=== PATIENT | female | born 1950 | race Caucasian/White ===

== ENCOUNTER 2018-03-08 12:51 | Emergency (ER) | payer MEDICARE, OTHER ==
[~2018-03-08] VITALS: Ht 167.6 cm; Wt 136.1 kg
[~2018-03-08 12:51] MED LIST: ALBU90OI; ALBU90OI INH; AMIT50; AMOCLA875 PO; ARTTEAOPSO BOTHEYES; ASPI325; ASPI81CH; ASPI81CH PO; ATEN25 PO; CHRO200; CLON.5 PO; CONEST1.25; DIAZ5 PO; DICMIS75EC PO; FLAX; FLUO20; FLUT.05NI; FURO40; GABA400; HYDACE10B; HYDACE10B PO; HYDPAM50; LEVSOD25; LISI20; MAGCHL64ER; METF500; MONT10T; MULVITB; MULVITMINF; OMEP20ER; OMEP20ER PO; OXYACE5T; OXYACE5T PO; OXYC10ER PO; OXYM.05NI; PIOG15; POTCHL20ER; RANI150 PO; SALMOI6.5; SPIHYD; TOCO400; TRAM50 PO; ZAFI20
[2018-03-08] MEDS ORDERED: BUDE.25 NEB (13:14)
[2018-03-08] MEDS ORDERED: FURO20 PO (13:15)
[2018-03-08] MEDS ORDERED: DULO60 (13:15)
[2018-03-08] MEDS ORDERED: DIVA250EC PO (13:15)
[2018-03-08] MEDS ORDERED: Humalog100 UNIT/1 (13:16)
[2018-03-08] MEDS ORDERED: GABA600 PO (13:16)
[2018-03-08] MEDS ORDERED: ISODIN10 PO (13:17)
[2018-03-08] MEDS ORDERED: INSULANPEN (13:17)
[2018-03-08] MEDS ORDERED: SPIR25 PO (13:18)
[2018-03-08] MEDS ORDERED: NITR.4SL SL (13:18)
[2018-03-08] MEDS ORDERED: METF500C PO (13:18)
[2018-03-08 13:35] LABS: BASOPHILS ABSOLUTE AUTO 0.02 K/mm3 (0.00-0.23); BASOPHILS PERCENT AUTO 0 % (0-2); EOSINOPHILS ABSOLUTE AUTO 0.08 K/mm3 (0.00-0.68); EOSINOPHILS PERCENT AUTO 1 % (0-6); Hematocrit 37.5 % (33.0-51.0); Hemoglobin 11.2 g/dL (11.5-16.0); IMMATURE GRAN ABSOLUTE AUTO 0.03 K/mm3 (0.00-0.10); IMMATURE GRAN PERCENT AUTO 0 % (0-1); LYMPHOCYTES ABSOLUTE AUTO 1.75 K/mm3 (0.84-5.20); LYMPHOCYTES PERCENT AUTO 22 % (21-46); MONOCYTES ABSOLUTE AUTO 0.49 K/mm3 (0.16-1.47); MONOCYTES PERCENT AUTO 6 % (4-13); Mean Corpuscular HGB 25.2 pg (26.0-34.0); Mean Corpuscular HGB Conc 29.9 g/dL (31.5-36.5); Mean Corpuscular Volume 84 fL (80-100); Mean Platelet Volume 9.2 fL (9.1-12.4); NEUTROPHILS ABSOLUTE AUTO 5.78 K/mm3 (1.96-9.15); NEUTROPHILS PERCENT AUTO 71 % (41-73); Platelet Count 156 K/mm3 (150-400); RDW Coefficient Variation 14.4 % (11.7-14.2); RDW Standard Deviation 44.4 fL (35.1-46.3); Red Blood Cell Count 4.45 M/mm3 (3.80-5.20); White Blood Cell Count 8.15 K/mm3 (4.00-11.30)
[2018-03-08 14:03] LABS: Alanine Aminotransfer (ALT/SGP 17 U/L (12-78); Albumin, Blood 2.9 g/dL (3.4-5.0); Albumin/Globulin Ratio 0.8 (0.8-1.8); Alk Phos 57 U/L (50-136); Anion Gap 5 mmol/L (6-16); Aspartate Aminotrans (AST/SGOT 13 U/L (12-37); Bilirubin, Total 0.3 mg/dL (0.1-1.0); Blood Urea Nitrogen 12 mg/dL (8-24); Bun/Creatinine Ratio 18.8 (12.0-20.0); CO2, Blood 36 mmol/L (21-32); Calcium, Blood 8.3 mg/dL (8.5-10.1); Chloride, Blood 99 mmol/L (98-108); Creatinine, Blood 0.64 mg/dL (0.40-1.00); Globulin, Blood 3.7 g/dL (2.2-4.0); Glomerular Filtration Rate >60 (60-); Glucose, Blood 194 mg/dL (70-99); Potassium, Blood 3.8 mmol/L (3.5-5.5); Sodium, Blood 140 mmol/L (136-145); Total Protein, Blood 6.6 g/dL (6.4-8.2); Troponin I <0.015 ng/mL (0.000-0.040)
[2018-03-08] MEDS ORDERED: Ranitidine HCl300 M1 PO (16:02)
== END 2018-03-08 18:10 | disposition home or self-care (01) ==
LOC: ER 12:51
PROVIDERS: Emergency Medicine
DX: J44.9 Chronic obstructive pulmonary disease, unspecified (principal); R07.2 Precordial pain; E66.01 Morbid (severe) obesity due to excess calories; E11.9 Type 2 diabetes mellitus without complications; Z87.891 Personal history of nicotine dependence; Z79.4 Long term (current) use of insulin; Z79.82 Long term (current) use of aspirin; Z79.899 Other long term (current) drug therapy; Z88.1 Allergy status to other antibiotic agents; Z88.6 Allergy status to analgesic agent; Z88.5 Allergy status to narcotic agent; Z88.8 Allergy status to other drugs, medicaments and biological substances
CPT/HCPCS: 71046; 80053; 83880; 84484; 85025; 85379; 93005; 93010; 96374; 99285-25; J1170